=== PATIENT | female | born 1995 | race African-American/Black ===

== ENCOUNTER 2024-03-02 12:54 | Emergency (ER) | payer MEDICAID, OTHER ==
[~2024-03-02] VITALS: Ht 180.3 cm; Wt 136.0 kg
[~2024-03-02 12:54] MED LIST: DOCU-138 PO; FOLI-43 PO; LEVE500T9 PO; LEVE750T4 PO; LEVO500T2 PO; METR500T PO; PROT40 PO; TOPA25 PO; VIC PO
[2024-03-02 13:01] VITALS: BP 155/95; PULSE 77; RESP 20; O2SAT 100
[2024-03-02 14:38] VITALS: TEMP 98.1
[2024-03-02] MEDS: ACETAMINOPHEN 325MG TABLET PO ONE (14:38)
[2024-03-02] MEDS ORDERED: LIDO700A15 TP (15:00)
[2024-03-02] MEDS ORDERED: NAPR-1176 MT (15:00)
== END 2024-03-02 15:49 | disposition home or self-care (01) ==
LOC: ER 12:54
DX: M79.604 Pain in right leg (principal); Z79.899 Other long term (current) drug therapy; Z98.890 Other specified postprocedural states; Z86.73 Personal history of transient ischemic attack (TIA), and cerebral infarction without residual deficits
CPT/HCPCS: 73610; 81025; 99283